=== PATIENT | male | born 1950 | race Caucasian/White ===

== ENCOUNTER 2017-04-03 06:41 | Day surgery (SDC) | payer OTHER, BC ==
[2017-04-02 10:42] VITALS: BMI 33.0
[~2017-04-03 06:41] MED LIST: LIDOCAINE HCL 2% JELLY 10 ML CARTRIDGE TP ONE
[2017-04-03] MEDS ORDERED: ePHEDrine SULFATE 50 MG/1 ML AMPULE ONE (08:15)
[2017-04-03] MEDS ORDERED: fentaNYL CITRATE 250 MCG/5 ML VIAL ONE (08:15)
[2017-04-03] MEDS ORDERED: LIDOCAINE HCL/PF 2% SDV 5ML VIAL ONE ×2 (08:15→08:18)
[2017-04-03] MEDS ORDERED: MIDAZOLAM HCL 2 MG/2 ML SINGLE DOSE VIAL ONE ×3 (08:16→09:28)
[2017-04-03] MEDS ORDERED: PROPOFOL 20 ML ONE ×2 (08:16)
[2017-04-03] MEDS ORDERED: SUCCINYLCHOLINE CHLORIDE 200 MG/10 ML VIAL ONE (08:16)
[2017-04-03] MEDS ORDERED: ceFAZolin SODIUM 1 GM VIAL ONE (08:42)
[2017-04-03] MEDS ORDERED: LEVOFLOXACIN 500 MG PREMIX BAG IVPB ONE (09:05)
[2017-04-03] MEDS ORDERED: LIDOCAINE HCL 2% JELLY 10 ML CARTRIDGE ONE (09:16)
[2017-04-03] MEDS ORDERED: LEVOFLOXACIN 500 MG IVPB 500 MG/100 ML BAG IVPB ONE (09:27)
[2017-04-03] MEDS ORDERED: LIDOCAINE HCL 2% JELLY 10 ML CARTRIDGE TP ONE (09:55)
[2017-04-03] MEDS ORDERED: oxyCODONE HCL 5 MG TABLET PO PRN (10:16)
--- NOTE | 2017-04-03 10:16 | OP ---
Operative Note - Note: Operative Date: 04/03/17 Pre-Operative Diagnosis: BPH/incomplete bladder emptying Operation: cysto/bipolar TURVP, TURP Findings: triloab hyperplasia Post-Operative Diagnosis: Same as Pre-op Surgeon: Simon Walters Anesthesiologist/MANAGER INFORMATION: Rene Diop Anesthesia: Spinal Specimens Removed: prostate chips Estimated Blood Loss (mls): 10 Drains & Tubes with Location: 22fr lo Operative Report Dictated: Yes
[2017-04-03] MEDS ORDERED: ONDANSETRON 4 MG/2 ML VIAL IVPUSH PRN (10:17)
[2017-04-03] MEDS ORDERED: LACTATED RINGERS SOLUTION 1,000 ML IV SCH (10:30)
--- NOTE | 2017-04-03 10:56 | OP ---
DATE OF OPERATION: 04/03/2017 PREOPERATIVE DIAGNOSIS: Benign prostatic hypertrophy with incomplete bladder emptying. POSTOPERATIVE DIAGNOSIS: Benign prostatic hypertrophy with incomplete bladder emptying. PROCEDURE: Cystoscopy, bipolar transurethral resection of the prostate and bipolar transurethral vaporization of the prostate. SURGEON: Nancy Rizo MD INDICATION: Patient is a 66-year-old male with BPH, incomplete bladder emptying with resultant hydronephrosis. After reviewing treatment options, the patient elected to undergo bipolar TURP and TURVP. Risks, benefits, and alternatives were discussed in detail, and consent was obtained prior to the day of surgery. DESCRIPTION OF PROCEDURE: After informed consent was obtained, the patient was then taken to the OR, and a spinal anesthetic was then given. He was prepped and draped in dorsal lithotomy position. At this point, the 26-sheath resectoscope Olympus with visual obturator was inserted into the urethra without difficulty. Anterior urethra was normal. Prostatic urethra was 5 cm long with an enlarged median bar, and the scope had to really be angulated down in order to reach the bladder because of the high bladder neck with median lobe. The bladder was visualized. No tumors or stones noted in the bladder. Bilateral ureteral orifices were seen in normal anatomic position. At this point, using the resector loop, the prostate tissue was resected first at the median bar to create an open channel, and these prostate chips were then removed with the iKn evacuator. Then, using the button electrode, the rest of the tissue was vaporized starting at the bladder neck and ending 1 cm proximal to the verumontanum to minimize the chance for incontinence. As a consequence, some apical tissue was left. This was vaporized until a wide open channel was created. All bleeding sites were then fulgurated. There was no injury noted to the bladder or the ureteral orifices. Resectoscope was then removed, and a 22-[place] Chung was then placed to straight drainage. Light-pink tinged urine was retrieved. The patient was then awoken from anesthesia and transferred to the recovery room in stable condition. There were no complications. Estimated blood loss was 10 mL. NANCY RIZO M.D. [id number]
[2017-04-03] MEDS ORDERED: ELECTROLYTE-148 SOLN 1,000 ML IV SCH (12:00)
[2017-04-03 12:33] VITALS: BP 146/70; PULSE 51
[2017-04-03 12:47] VITALS: TEMP 97.8
--- NOTE | 2017-04-04 15:47 | PATH ---
Surgical Pathology Report Patient Name: MOHAMUD CARMONA [facility]. Rec. #: [id number] /Age/Gender: 1950 (Age: 66) / M Account: [id number] Location: [facility] SURGICAL Taken: 04/03/2017 Received: 04/03/2017 Reported: 04/04/2017 Physicians: Simon Walters M.D. Specimen(s) Received PROSTATE CHIPS Clinical History BPH with incomplete bladder emptying Final Diagnosis PROSTATE, TUR: BENIGN PROSTATIC HYPERPLASIA. OVERLYING UROTHELIUM SHOWS PATCHY CHRONIC INFLAMMATION. Electronically Signed Bib Juarez M.D. Gross Description Received in formalin labeled "prostate chips," is a 3 g, 3.5 x 2.3 x 0.3 cm aggregate of multiple weston, irregular, firm to rubbery portions of tissue, consistent with prostate chips. The specimen is entirely submitted in 3 cassettes. /04/03/201704/03/2017
== END 2017-04-03 13:45 | disposition home or self-care (01) ==
LOC: JASU-SURG 06:41
PROVIDERS: ATTEND Urology
PROC: 0VT08ZZ Resection of Prostate, Via Natural or Artificial Opening Endoscopic (ICD-10-PCS; principal; 2017-04-03 08:30)
DX: N40.1 Benign prostatic hyperplasia with lower urinary tract symptoms (principal); R33.8 Other retention of urine
CPT/HCPCS: 88305-TC; 94760